=== PATIENT | female | born 1990 ===

== ENCOUNTER 2019-08-09 12:17 | Inpatient (IN) | payer SELFPAY ==
[2019-08-09] MEDS ORDERED: ePHEDrine SULFATE 50 MG/1 ML INJ IV PRN (13:04)
[2019-08-09] MEDS ORDERED: MINERAL OIL 30 ML ORAL LIQD PO PRN (13:04)
[2019-08-09] MEDS ORDERED: TERBUTALINE 1 MG/1 ML INJ IVP PRN (13:04)
[2019-08-09] MEDS ORDERED: TERBUTALINE 1 MG/1 ML INJ SUB-Q PRN (13:04)
[2019-08-09] MEDS ORDERED: LIDOCAINE (2%) 20 MG/1 ML VIAL 20 ML MDV INFILTRATI ONE (13:04)
[2019-08-09 13:25] LABS: Hematocrit 31.9 % (30.3-42.9); Hemoglobin 10.5 gm/dl (10.1-14.3); Mean Corpuscular HGB Conc 33 % (30-34); Mean Corpuscular Volume 71 fl (79-97); Platelet Count 256 K/mm3 (140-440); Red Blood Count 4.46 M/mm3 (3.65-5.03); Red Cell Distribution Width 16.7 % (13.2-15.2)
[2019-08-09] MEDS ORDERED: OXYTOCIN 20 UNIT/1000ML DRIP 20 UNITS/1,000 ML BAG IV SCH ×3 (14:00→18:00)
[2019-08-09] MEDS ORDERED: LACTATED RINGERS 1,000 ML IV SCH (14:00)
--- NOTE | 2019-08-09 14:22 | Anesthesia Day of Surgery ---
Anesthesia Day of Surgery - Day of Surgery Patient Examined: Yes Patient H&P Reviewed: Yes Patient is NPO: Yes
--- NOTE | 2019-08-09 14:22 | Anesthesia Consultation ---
Anesthesia Consult and Med Hx Date of service: 08/09/19 - Airway Anesthetic Teeth Evaluation: Good ROM Head & Neck: Adequate Mental/Hyoid Distance: Adequate Mallampati Class: Class II Intubation Access Assessment: Probably Good - Pulmonary Exam CTA: Yes - Cardiac Exam Cardiac Exam: RRR - Pre-Operative Health Status ASA Pre-Surgery Classification: ASA2 Proposed Anesthetic Plan: Spinal - Pulmonary Hx Asthma: No COPD: No - Cardiovascular System Hx Hypertension: No - Central Nervous System Hx Seizures: No Hx Psychiatric Problems: No - Endocrine Hx Renal Disease: No Hx End Stage Renal Disease: No Hx Hypothyroidism: No Hx Hyperthyroidism: No - Hematic Hx Anemia: No Hx Sickle Cell Disease: No - Other Systems Hx Alcohol Use: No
[2019-08-09] MEDS ORDERED: FAMOTIDINE 20 MG/2 ML INJ IV ONE (15:00)
[2019-08-09] MEDS ORDERED: ceFAZolin/Water 2 GM/20 ML 2 GM/20 ML SYRINGE IV NR (15:00)
[2019-08-09] MEDS ORDERED: METOCLOPRAMIDE 10 MG/2 ML INJ IV ONE (15:00)
[2019-08-09] MEDS ORDERED: BICITRA ORAL LIQD 30ML PO ONE (15:00)
[2019-08-09] MEDS ORDERED: BUPIVACAINE/PF (0.5%) 5 MG/1 ML 30 ML VIAL INFILTRATI ONE (15:34)
[2019-08-09] MEDS ORDERED: KETOROLAC 30 MG/1 ML INJ ONE (15:34)
[2019-08-09] MEDS ORDERED: SODIUM CHLORIDE 0.9% 100 ML ONE (15:34)
[2019-08-09] MEDS ORDERED: DEXMEDETOMIDINE 200 MCG/2 ML VIAL IV ONE (15:34)
[2019-08-09] MEDS ORDERED: dexAMETHasone 20 MG/5 ML VIAL ONE (15:34)
[2019-08-09] MEDS ORDERED: PHENYLEPHRINE 10 MG/1 ML INJ SDV ONE (15:34)
[2019-08-09] MEDS ORDERED: ceFAZolin/STERILE WATER 2 GM/20 ML SYRINGE IV ONE (15:48)
--- NOTE | 2019-08-09 15:55 | History and Physical Report ---
History of Present Illness Date of examination: 08/09/19 Date of admission: 08/09/19 12:18 Chief complaint: Fior at term, previous . History of present illness: Fior at term, previous . Past History Past Surgical History: section - Obstetrical History : 2 Medications and Allergies Allergies Allergy/AdvReac Type Severity Reaction Status Date / Time No Known Allergies Allergy Unverified 08/09/19 13:02 Home Medications Medication Instructions Recorded Confirmed Last Taken Type Vitamin 1 tab PO DAILY 08/09/19 08/09/19 08/08/19 History Active Meds: Active Medications Ephedrine Sulfate (Ephedrine Sulfate) 10 mg IV Q2M PRN PRN Reason: Hypotension Oxytocin/Sodium Chloride (Pitocin/Ns 20 Unit/1000ml Drip) 20 units in 1,000 mls @ 125 mls/hr IV DIRECT MIRNA Lactated Ringer's (Lactated Ringers) 1,000 mls @ 125 mls/hr IV DIRECT MIRNA Last Admin: 08/09/19 14:58 Dose: 125 mls/hr Documented by: Cefazolin Sodium (Ancef/Sterile Water 2 Gm/20 Ml) 2 gm in 20 mls @ 80 mls/hr IV PREOP NR; Protocol Stop: 08/09/19 23:59 Mineral Oil (Mineral Oil) 30 ml PO QHS PRN PRN Reason: Constipation Terbutaline Sulfate (Brethine) 0.25 mg SUB-Q ONCE PRN PRN Reason: Hyperstimulation/Hypertonicity Terbutaline Sulfate (Brethine) 0.25 mg IVP ONCE PRN PRN Reason: Hyperstimulation/Hypertonicity Review of Systems All systems: negative - Vital Signs Vital signs: Vital Signs Pulse BP 77 131/95 08/09/19 12:41 08/09/19 12:41 Temp Pulse Resp BP Pulse Ox 94 H 135/85 97 08/09/19 15:07 08/09/19 14:43 08/09/19 15:07 - Physical Exam Lungs: Positive: Normal air movement - Obstetrical FHR: auscultation normal Results Result Diagrams: 08/09/19 13:10 Abnormal lab results 08/09/19 Range/Units 13:10 MCV 71 L (79-97) fl MCH 23 L (28-32) pg RDW 16.7 H (13.2-15.2) % All other labs normal. Assessment and Plan - Patient Problems (1) Previous section complicating Current Visit: Yes Status: Acute Plan to address problem: VBACvs repeat discussed. patient consented for repeat .
[2019-08-09] MEDS ORDERED: WATER FOR IRRIG STERILE 1,500 ML BOTTLE IR ONE (16:16)
[2019-08-09] MEDS ORDERED: SODIUM CHLORIDE 0.9% IRR 1,500 ML BOTTLE IR ONE (16:16)
[2019-08-09] MEDS ORDERED: NALOXONE 0.4 MG/1 ML INJ IV PRN (17:12)
[2019-08-09] MEDS ORDERED: LANOLIN/ZINC/DIMETHICONE (LANSINOH) 7 GM TP PRN (17:12)
[2019-08-09] MEDS ORDERED: IBUPROFEN 800 MG TAB PO PRN (17:12)
[2019-08-09] MEDS ORDERED: WITCH HAZEL/ GLYCERIN PAD TP PRN (17:12)
[2019-08-09] MEDS ORDERED: ONDANSETRON 4 MG/2 ML INJ IV PRN (17:12)
[2019-08-09] MEDS ORDERED: KETOROLAC 30 MG/1 ML INJ IV PRN (17:12)
[2019-08-09] MEDS ORDERED: MORPHINE 4 MG/1 ML INJ IV PRN ×2 (17:12→17:15)
[2019-08-09] MEDS ORDERED: ACETAMINOPHEN 325 MG TAB PO PRN (17:15)
--- NOTE | 2019-08-09 17:24 | Operative Report ---
Operative Report Operative Report: Date of surgery: August 09, 2019 Preoperative diagnoses: Spontaneous rupture of membranes, term , previ ous Postoperative diagnoses: The same. Operation: Lower segment transverse delivery Surgeon:Reid Pate MD Colorer Machine: Amando Ulloa CRNA Anesthesia: Spinal block Estimated blood loss: 500 mL Complications: None Findings: There was a live baby boy in cephalic presentation, weight 7 pounds 6 ounces, Apgars 9/9. The ovaries fallopian tubes as well as the uterus were all unremarkable structures. Procedure in detail: The patient was taken to the operating room and given a spinal block. Patient was placed in the straight supine position and a Carlin catheter was inserted. The patient was prepped in the abdomen. The drapes were placed. A timeout was done. With the go ahead from the cultural anthropology professor, a Pfannenstiel incision was made. This incision was carried across the subcutaneous layer to the fascia which was also divided transversely. The recti abdominis muscle flaps were stripped from the fascia using a combination of blunt and sharp dissections. The muscles were in the midline to gain access to the anterior parietal peritoneum which was divided after excluding any underlying viscera. The access to the peritoneal cavity was then widened by manual stretching. The bladder blade was applied. The utero vesicle peritoneal flap was divided transversely allowing the bladder to be displaced caudally. The uterine incision was placed in the lower segment transversely. The uterine incision was carried to the decidual layer. The uterine incision was extended on both sides using the bandage scissors. The amniotic sac was ruptured with clear fluid. The head was lifted out of the false maternal pelvis and delivered through the incision using fundal pressure. The airways were bulb suctioned beginning with the mouth. Continuing fundal pressure combined with traction on the mandibular processes of the jaw delivered the rest of the baby. The umbilical cord was double clamped and divided. The baby was carefully transferred to the pediatric team. The placenta was manually removed from the uterine cavity. The uterine cavity was explored and was empty of any placental remnants. The uterine incision was repaired in 2 layers with #1 Vicryl. The surgical line on the uterus was hemostatic. Blood and clots were cleared from the peritoneal cavity. The anterior parietal peritoneum was repaired with #1 Vicryl. The fascia was repaired with #1 Vicryl. The subcutaneous layer was made hemostatic using the Bovie before the skin was closed subcuticularly with 4-0 Vicryl. There were no complications. The estimated blood loss was 500 mL. All sponges and instrument counts were correct. Patient was safely transferred to the recovery room.
--- NOTE | 2019-08-09 17:48 | Post Anesthesia Evaluation ---
- Post Anesthesia Evaluation Patient Participated: Yes Airway Patent: Yes Stable Respiratory Function: Yes Nausea/Vomiting: No Temp > 96.8F: Yes Pain Manageable: Yes Adequeate Hydration: Yes Anesthesia Complications: No Block Receding Appropriately: Yes
[2019-08-09] MEDS: ceFAZolin/NS 1 GM/50 ML 1 GM/50 ML BAG IV SCH (21:49)
[2019-08-09] MEDS: KETOROLAC 30 MG/1 ML INJ IV PRN (21:50)
[2019-08-09] MEDS: D5W/LACTATED RINGERS 1,000 ML IV SCH (22:34)
[2019-08-10] MEDS: KETOROLAC 30 MG/1 ML INJ IV PRN (05:25)
[2019-08-10] MEDS: ceFAZolin/NS 1 GM/50 ML 1 GM/50 ML BAG IV SCH (05:26)
[2019-08-10] MEDS: D5W/LACTATED RINGERS 1,000 ML IV SCH (06:55)
[2019-08-10 08:03] LABS: Hematocrit 27.2 % (30.3-42.9); Hemoglobin 8.8 gm/dl (10.1-14.3)
[2019-08-10] MEDS ORDERED: PRENATAL VIT27-FE FUMARATE-FOLIC ACID VIT TAB PO SCH (10:00)
[2019-08-10] MEDS ORDERED: FERROUS SULFATE 325 MG TAB PO SCH ×2 (10:00)
[2019-08-10] MEDS: PRENATAL VIT27-FE FUMARATE-FOLIC ACID VIT TAB PO SCH (10:33)
--- NOTE | 2019-08-10 10:54 | Progress Note ---
Assessment and Plan A: /postop day 1 S/P repeat LTCS. Anemia. P: Supplement with iron. Encouraged ambulation. Continue current management. Subjective - Subjective Date of service: 08/10/19 Principal diagnosis: /postop day 1 S/P repeat LTCS Interval history: /postop day 1 S/P repeat LTCS. Doing well. Patient reports: appetite normal, voiding normally, pain well controlled, flatu s, ambulating normally, no dizzy ambulation, no nauseated [place]: doing well Objective - Vital Signs Latest vital signs: Vital Signs Temp Pulse Resp BP BP Pulse Ox 08/10/19 08:07 98.3 F 69 18 106/62 94 08/10/19 05:55 18 08/10/19 01:09 98.2 F 68 18 101/61 97 08/09/19 21:03 97.8 F 59 L 18 140/76 96 08/09/19 18:59 97.5 F L 58 L 16 134/78 97 08/09/19 18:39 12 08/09/19 18:25 53 L 13 132/77 97 08/09/19 18:10 97.8 F 55 L 12 129/80 97 08/09/19 17:55 61 15 126/73 98 08/09/19 17:40 55 L 13 133/80 97 08/09/19 17:35 57 L 14 125/82 98 08/09/19 17:31 66 12 113/72 97 08/09/19 17:24 98.0 F 66 12 108/72 97 08/09/19 15:07 94 H 97 08/09/19 14:45 83 99 08/09/19 14:43 75 16 135/75 08/09/19 14:40 78 99 08/09/19 14:35 75 99 08/09/19 14:30 80 100 08/09/19 14:26 87 135/75 08/09/19 14:25 88 99 08/09/19 14:20 75 99 08/09/19 14:15 78 99 08/09/19 14:12 80 140/92 08/09/19 14:10 82 99 08/09/19 14:05 84 99 08/09/19 14:00 78 99 08/09/19 13:59 76 136/77 08/09/19 13:55 82 99 08/09/19 13:50 77 99 08/09/19 13:45 77 99 08/09/19 13:41 80 117/72 08/09/19 13:40 82 99 08/09/19 13:35 78 98 08/09/19 13:30 85 99 08/09/19 13:28 72 126/73 08/09/19 13:25 83 98 08/09/19 13:20 85 98 08/09/19 13:15 93 H 98 08/09/19 13:12 76 124/73 08/09/19 13:10 79 98 08/09/19 13:05 84 98 08/09/19 13:00 85 98 08/09/19 12:55 85 98 08/09/19 12:50 82 97 08/09/19 12:45 85 98 08/09/19 12:41 77 131/95 Intake and Output 08/09/19 08/10/19 08/10/19 23:59 07:59 15:59 Intake Total 890 1360 Output Total 1400 1900 450 Balance -510 -540 -450 Intake: IV 650 1000 ANCEF/NS 1 GM/50 ML 1 gm 50 In 50 ml @ 100 mls/hr IV Q8H MIRNA Rx#:[id number] D5lr 1,000 ml @ 125 mls/ 1000 hr IV DIRECT MIRNA Rx#: [id number] Oral 120 Intake, Free Water 240 240 Output: Urine 1400 1900 450 Indwelling Catheter 1900 Void 450 Other: Total, Intake Amount 120 Total, Output Amount 500 450 # Voids Void 1 Estimated Blood Loss 500 - Exam Cardiovascular: Present: Regular rate, Normal S1, Normal S2, No murmurs Lungs: Present: Clear to auscultation Abdomen: Present: normal appearance, soft, normal bowel sounds. Absent: distention, tenderness, guarding, rigidity Uterus: Present: normal, firm, fundal height below umbilicus. Absent: bogginess, tenderness Extremities: Present: normal. Absent: tenderness, edema Incision: Present: normal, dry, dressed - Labs Labs: Abnormal lab results 08/09/19 08/10/19 Range/Units 13:10 07:28 Hgb 8.8 L (10.1-14.3) gm/dl Hct 27.2 L (30.3-42.9) % MCV 71 L (79-97) fl MCH 23 L (28-32) pg RDW 16.7 H (13.2-15.2) %
[2019-08-10] MEDS: HYDROcodone/ACETAMINOPHEN 5-325 MG TAB PO PRN ×2 (12:31→18:40)
[2019-08-10] MEDS: IBUPROFEN 800 MG TAB PO PRN (20:22)
[2019-08-11] MEDS: IBUPROFEN 800 MG TAB PO PRN ×2 (05:52→12:31)
[2019-08-11] MEDS: HYDROcodone/ACETAMINOPHEN 5-325 MG TAB PO PRN (09:15)
[2019-08-11] MEDS: PRENATAL VIT27-FE FUMARATE-FOLIC ACID VIT TAB PO SCH (09:15)
[2019-08-11] MEDS ORDERED: FERROUS SULFATE 325 MG TAB PO SCH (10:00)
--- NOTE | 2019-08-11 10:02 | Progress Note ---
Assessment and Plan - Patient Problems (1) S/P repeat low transverse Current Visit: Yes Status: Acute Plan to address problem: POD 2 - stable Continue routine postop orders Ambulation encouraged Discharge to home today Follow-up at [facility] as needed or in 1 week for incision check (2) Anemia due to blood loss, acute Current Visit: Yes Status: Acute Plan to address problem: Asymptomatic Ferrous sulfate increased from 325mg PO qd to 325mg PO BID Subjective - Subjective Date of service: 08/11/19 Principal diagnosis: POD #2; s/p Repeat LTCS Interval history: see WHITING MACHINE OPERATOR - H&P, 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 Report 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 Progress Note Patient reports: appetite normal, voiding normally, pain well controlled, flatus, ambulating normally, no dizzy ambulation, no bowel movement [place]: doing well, nursing well Objective - Vital Signs Latest vital signs: Vital Signs Temp Pulse Resp BP BP Pulse Ox 08/11/19 08:30 97.7 F 80 20 111/67 08/11/19 00:26 97.4 F L 81 16 105/63 96 08/10/19 15:37 97.9 F 90 18 104/71 96 08/10/19 11:19 98.4 F 75 18 98/64 96 Intake and Output 08/10/19 08/11/19 08/11/19 23:59 07:59 15:59 Intake Total 360 360 360 Balance 360 360 360 Intake: Oral 360 Intake, Free Water 360 360 Other: Total, Intake Amount 360 # Voids Void 2 1 1 - Exam Cardiovascular: Present: Regular rate Lungs: Present: Clear to auscultation, Normal air movement Abdomen: Present: normal appearance, soft Vulva: both: normal Uterus: Present: normal, firm, fundal height below umbilicus Extremities: Present: normal Incision: Present: normal, dry, intact Comments: scant lochia
--- NOTE | 2019-08-11 10:06 | Discharge Summary ---
Providers - Providers Date of Admission: 08/09/19 12:18 Date of discharge: 08/11/19 Attending physician: DEISY CUNNINGHAM MD Primary care physician: DEISY CUNNINGHAM MD Hospitalization Reason for admission: IUP at term Delivery: Procedure: repeat low transverse Episiotomy: none Laceration: none Incision: normal, dry, intact Other procedures: none complications: none Discharge diagnosis: IUP at term delivered [place] baby: male Hospital course: Uncomplicated Condition at discharge: Stable Disposition: [place]- TO HOME OR SELFCARE - Discharge Diagnoses (1) S/P repeat low transverse Status: Acute (2) Anemia due to blood loss, acute Status: Acute Comment: Asymptomatic Continue iron therapy Eat iron-rich foods Plan - Discharge Medications Prescriptions: Ferrous Sulfate [Feosol 325 MG tab] 325 mg PO BID #60 tablet Ibuprofen [Motrin 800 MG tab] 800 mg PO Q6H PRN #30 tablet PRN Reason: Pain, Mild (1-3) HYDROcodone/APAP 5-325 [[place] 5/325] 1 - 2 each PO Q4HR PRN #30 tablet PRN Reason: Pain - Provider Discharge Summary Activity: routine, no sex for 6 weeks, no heavy lifting 4 weeks, no strenuous exercise Diet: routine Instructions: routine Additional instructions: [] Smoking cessation referral if applicable(refer to patient education folder for contact #) [] Refer to [facility]'s [facility] Booklet Call your doctor immediately for: * Fever > 100.5 * Heavy vaginal bleeding ( >1 pad per hour) * Severe persistent headache * Shortness of breath * Reddened, hot, painful area to leg or breast * Drainage or odor from incision. * Keep incision clean and dry at all times and follow doctor's instructions regarding bathing/showering - Follow up plan Follow up: DEISY CUNNINGHAM MD [Primary Care Provider] - 7 Days (Follow-up at [facility] as needed or in 1 week for incision check)
[2019-08-11 14:33] VITALS: BP 112/62
== END 2019-08-11 15:25 | disposition home or self-care (01) | DRG 787 ==
LOC: LD 12:17 → TRG 12:17 → APU 12:18 → LD 12:18 → TRG 12:18 → OB 18:56
PROVIDERS: ADMIT Obstetrics & Gynecology; ATTEND Obstetrics & Gynecology
PROC: 10D00Z1 Extraction of Products of Conception, Low, Open Approach (ICD-10-PCS; principal; 2019-08-09)
DX: O34.211 Maternal care for low transverse scar from previous cesarean delivery (principal); D62 Acute posthemorrhagic anemia; Z3A.00 Weeks of gestation of pregnancy not specified; Z37.0 Single live birth; O90.81 Anemia of the puerperium
CPT/HCPCS: 36415; 85014; 85018; 85027; 86850; 86900; 86901; G0378; J0690; J1100; J1885; J2370; J2590; J2765; J3490; J7120; J7121